=== PATIENT | female | born 1955 | race Caucasian/White ===

== ENCOUNTER → 2023-03-27 | Day surgery (SDC) | payer MEDICARE, MEDICAID ==
[~2023-03-27] VITALS: Ht 160 cm; Wt 99.8 kg
[~2023-03-27] MED LIST: ARIP10TA56 PO; BUPIVACAINE HCL/PF 0.5% (5MG/ML) 10ML ONE; CARV12.545 PO; CEFAZOLIN SODIUM 1000MG/VIAL ONE; CHOL400D7 PO; DEXAMETHASONE 4MG/ML 1ML VIAL ONE; ETOMIDATE 2MG/ML 10ML VIAL IV ONE; FENTANYL CITRATE/PF 50MCG/ML 2ML VIAL IV PRN; FENTANYL CITRATE/PF 50MCG/ML 2ML VIAL ONE; FERR-54 PO; FLUO40CA8 PO; FURO20TA4 PO; GLYCOPYRROLATE 0.2 MG/ML 2ML VIAL ONE; HYDROCODONE/ACETAMINOPHEN 5/325MG TABLET PO PRN; LACTATED RINGERS 1,000 ML IV SCH; LIDOCAINE HCL 1% 20ML VIAL (Pyxis) INJ ONE; METOCLOPRAMIDE HCL 10MG/2ML VIAL ONE; NALOXONE HCL 0.4MG/ML VIAL IV PRN; NEOSTIGMINE METHYLSULFATE 1MG/ML 10 ML VIAL ONE; ONDANSETRON HCL 4MG/2ML INJ ONE; PANT20TA17 PO; POLYMYXIN B SULFATE 500000 UNITS/VIAL ONE; POTA-202 PO; PROPOFOL 200MG/20ML VIAL IV ONE; QUET100T PO; ROCURONIUM BROMIDE 10MG/ML VIAL 5ML IV ONE; SACU1TAB4 PO; SKIN ADHESIVE 0.7 GM EA TOP ONE; SUCCINYLCHOLINE CHLORIDE 200MG/10ML IV ONE; TIOT18CA3 IH
[2023-03-27 15:14] VITALS: BP 140/73; PULSE 76; RESP 19
== END | disposition home or self-care (01) ==
LOC: OR 06:57
PROVIDERS: ATTEND Specialist
DX: K80.10 Calculus of gallbladder with chronic cholecystitis without obstruction (principal); K21.9 Gastro-esophageal reflux disease without esophagitis; E66.9 Obesity, unspecified; F32.9 Major depressive disorder, single episode, unspecified; F41.9 Anxiety disorder, unspecified; I11.0 Hypertensive heart disease with heart failure; I50.9 Heart failure, unspecified; J44.9 Chronic obstructive pulmonary disease, unspecified; Z79.899 Other long term (current) drug therapy; Z98.890 Other specified postprocedural states; Z68.39 Body mass index [BMI] 39.0-39.9, adult
CPT/HCPCS: 88304; 47562; J3010; J3490 ×6; J0690; J1100; J2765; J2710; J2405; J2704; J0330; A4217 ×2; Z7610 ×27; J7030